=== PATIENT | female | born 2000 | race Caucasian/White ===

== ENCOUNTER 2022-03-26 14:47 | Outpatient (REF) | payer BC, SELFPAY ==
[2022-03-26 21:44] LABS: HCG Qual (Serum) Negative
== END 2022-03-26 14:48 | disposition home or self-care (01) ==
LOC: LBN 14:47
PROVIDERS: Visit Provider Physician Assistant
DX: R11.10 Vomiting, unspecified (principal); R10.30 Lower abdominal pain, unspecified; Z32.02 Encounter for pregnancy test, result negative
CPT/HCPCS: 84703

== ENCOUNTER 2023-03-23 18:03 | Emergency (ER) | payer BC, SELFPAY ==
[2023-03-23 18:07] VITALS: BP 133/88; PULSE 98; RESP 18; TEMP 36.8; O2SAT 100
--- NOTE | 2023-03-23 18:26 | W.ED.GENAD ---
Discharge Plan Disposition Patient Disposition: Home Condition: Stable Discharge Details Clinical Impression: Abnormal vaginal bleeding Primary Care Provider: None,None ED Provider: Kayleigh Castellanos Home Meds and New Rx's Prescriptions: No Action venlafaxine 225 mg tablet extended release 24hr 225 mg PO DAILY benzonatate 100 mg capsule 100 mg PO TID PRN (Reason: cough) Qty: 14 0RF albuterol sulfate [Proventil HFA] 90 mcg/actuation HFA aerosol inhaler 2 puff inhalation Q6H PRN (Reason: shortness of breath or wheezing) Qty: 8.5 0RF Rx Instructions: disp with spacer. dx. bronchitis with bronchospasm Discharge Instructions Instructions: Abnormal (Dysfunctional) Uterine Bleeding (ED) Additional Instructions: Please return as instructed by radiology department for Ultrasound within the next 24 hours. Return sooner if bleeding more than 1 pad an hour. Return if any dizziness, lighheadedness, or concerns. Follow up with [employer]/primary care provider in 3-5 days. Return to ED sooner if any worsening or concerns. Increase oral fluids. Please take Tylenol or Ibuprofen with food every 4-6 hours as needed for pain and swelling. Referrals: Becca Lopez MD [ [facility] STAFF PHYSICIAN] - 2 days Medical Decision Making 22-year-old female 2 para 0 presents with chief complaint of vaginal bleeding. Patient states that she had a medical proximately 2-1/2 weeks ago stopped bleeding and yesterday morning began bleeding again. She reports heavy bleeding approximately 1 pad in 3 hours. She reports a small amount of cramping denies any fever nausea vomiting diarrhea or any other associated symptoms. CBC, CMP prdered and IV. Urine HCG Urine POC positive will add on a HCG quant. Outpatient order ultrasound ordered for tomorrow. Discussed home care and strict return instructions, verbalized understanding. This text was generated using [employer] dictation system, please disregard any oddities of phrase or misspellings. Lab Data Lab results reviewed: Yes I reviewed the patient's lab results. Labs: Laboratory Tests Range/Units 03/23/23 03/23/23 03/23/23 18:49 19:07 19:20 WBC (4.4-10.8) 10^3/uL 14.46 H RBC (3.93-5.22) 10^6/uL 4.57 Hgb (11.2-15.7) g/dL 13.5 Hct (36.0-46.0) % 39.2 MCV (80-95) fL 86 MCH (27.0-33.0) pg 29.5 MCHC (32.0-36.0) % 34.4 RDW (11.7-14.6) % 12.2 Plt Count (130-400) 10^3/uL 495 H MPV (8.0-11.0) fL 8.2 Immature Gran % 0.0 Neutrophils % 64.0 Lymphocytes % 31.0 Monocytes % 3.0 Eosinophils % 2.0 Basophils % 0.0 Nucleated RBC % (0.0-0.3) % 0.0 Absolute Neutrophils (1.2-6.7) 10^3/uL 9.25 H Absolute Lymphocytes (1.2-3.4) 10^3/uL 4.48 H Absolute Monocytes (0.1-0.8) 10^3/uL 0.43 Absolute Eosinophils (0.0-0.7) 10^3/uL 0.29 Absolute Basophils (0.0-0.2) 10^3/uL 0.00 RBC Morphology Normal Sodium (136-145) mmol/L 139 Potassium (3.5-5.1) mmol/L 3.8 Chloride (98-107) mmol/L 105 Carbon Dioxide (21.0-32.0) mmol/L 20.7 L Anion Gap (3-11) mmol/L 13.3 H BUN (7-18) mg/dL 12 Creatinine (0.55-1.02) mg/dL 1.0 Est GFR (CKD-EPI 2020) (mL/min/1.73m2) 81.18 Glucose (74-106) mg/dL 103 Calcium (8.5-10.1) mg/dL 9.5 Total Bilirubin (0.2-1.0) mg/dL 0.3 AST (15-37) U/L 18 ALT (14-59) U/L 22 Alkaline Phosphatase (46-116) U/L 64 Total Protein (6.4-8.2) g/dL 8.2 Albumin (3.4-5.0) g/dL 4.2 Beta HCG, Quant (1-3) mIU/mL Urine HCG, Qual Cancelled Add-On Test Request Range/Units 03/23/23 03/23/23 20:15 20:15 WBC (4.4-10.8) 10^3/uL RBC (3.93-5.22) 10^6/uL Hgb (11.2-15.7) g/dL Hct (36.0-46.0) % MCV (80-95) fL MCH (27.0-33.0) pg MCHC (32.0-36.0) % RDW (11.7-14.6) % Plt Count (130-400) 10^3/uL MPV (8.0-11.0) fL Immature Gran % Neutrophils % Lymphocytes % Monocytes % Eosinophils % Basophils % Nucleated RBC % (0.0-0.3) % Absolute Neutrophils (1.2-6.7) 10^3/uL Absolute Lymphocytes (1.2-3.4) 10^3/uL Absolute Monocytes (0.1-0.8) 10^3/uL Absolute Eosinophils (0.0-0.7) 10^3/uL Absolute Basophils (0.0-0.2) 10^3/uL RBC Morphology Sodium (136-145) mmol/L Potassium (3.5-5.1) mmol/L Chloride (98-107) mmol/L Carbon Dioxide (21.0-32.0) mmol/L Anion Gap (3-11) mmol/L BUN (7-18) mg/dL Creatinine (0.55-1.02) mg/dL Est GFR (CKD-EPI 2020) (mL/min/1.73m2) Glucose (74-106) mg/dL Calcium (8.5-10.1) mg/dL Total Bilirubin (0.2-1.0) mg/dL AST (15-37) U/L ALT (14-59) U/L Alkaline Phosphatase (46-116) U/L Total Protein (6.4-8.2) g/dL Albumin (3.4-5.0) g/dL Beta HCG, Quant (1-3) mIU/mL 92 H Urine HCG, Qual Add-On Test Request DONE HPI General Mode of arrival: ambulatory. Date/Time Provider Initiated Documentation: 03/23/23 18:14. Limitations to Documentation: no limitations. Information obtained by: patient, RN notes reviewed and old records reviewed. HPI Narrative: 22-year-old female 2 para 0 presents with chief complaint of vaginal bleeding. Patient states that she had a medical proximately 2-1/2 weeks ago stopped bleeding and yesterday morning began bleeding again. She reports heavy bleeding approximately 1 pad in 3 hours. She reports a small amount of cramping denies any fever nausea vomiting diarrhea or any other associated symptoms. Related Data Home Medications Medication Instructions Recorded Confirmed venlafaxine 225 mg tablet,extended 225 mg PO DAILY 03/26/22 05/04/22 release 24 hr albuterol sulfate 90 mcg/actuation 2 puff inhalation Q6H PRN 05/04/22 05/04/22 aerosol inhaler (Proventil HFA) shortness of breath or wheezing #8.5 grams benzonatate 100 mg capsule 100 mg PO TID PRN cough #14 caps 05/04/22 05/04/22 Previous Rx's Medication Instructions Recorded albuterol sulfate 90 mcg/actuation 2 puff inhalation Q6H PRN 05/04/22 aerosol inhaler (Proventil HFA) shortness of breath or wheezing #8.5 grams benzonatate 100 mg capsule 100 mg PO TID PRN cough #14 caps 05/04/22 Allergies Allergy/AdvReac Type Severity Reaction Status Date / Time amoxicillin Allergy Verified 05/04/22 13:50 Penicillins Allergy Verified 05/04/22 13:50 General Stated Complaint: [employer] SHIRA: 3 Review of Systems All systems reviewed & are unremarkable except as noted in HPI and below PFSH All Active Problems (Updated 03/23/23 @ 21:03 by Kayleigh Castellanos NP) Abnormal vaginal bleeding (Acute) Social History Smoking/Tobacco Use Status: Current every day Tobacco Type: e-cigarettes Smoking risk assessment performed?: Yes Alcohol Intake: current Alcohol Intake frequency: holidays/special occasions only Drug use: Daily Substance use type: marijuana Do you feel safe at home: Yes Do you feel safe in your relationship?: Yes Exam Narrative Exam Narrative: Constitutional: Alert and oriented x3. Appears stated age. Normal body habitus. Head: Normocephalic, no trauma. Eyes: Pupils PERRL, Red reflex noted, EOM's intact. Eyelids symmetrical without lesions, discharge, or swelling. ENT: Bilateral TM's WNL, External ear normal to inspection, no mastoid TTP, swelling, or erythema, Nasal turbinates WNL, no nasal discharge. Normal dentition, Posterior pharynx WNL, no exudate. Chest: RRR, Normal S1, S2, distal pulses intact. Resp: Lungs clear to auscultation bilaterally, no wheezes, rales, or rhonchi. Abdomen: Soft, non-distended, Normoactive bowel sounds all 4 quads. Musculoskeletal: Normal gait, 5/5 strength to all four extremities. Skin: No suspicious rashes or lesions. Capillary refill less than 2 sec. Neurologic: Cranial nerves II-XII intact. Alert and oriented x 3. Motor: No deficits noted. Sensory: Intact bilaterally all 4 extremities. Reflexes: DTR's intact bilaterally.. Hematologic/Lymphatic: No ecchymosis, no lymphadenopathy. Course Vital Signs Vital signs: Vital Signs Temperature 36.8 C 03/23/23 18:07 Pulse 98 H 03/23/23 18:07 Respiratory Rate 18 03/23/23 18:07 Blood Pressure 133/88 03/23/23 18:07 Pulse Oximetry 100 03/23/23 18:07 Temperature 36.8 C 03/23/23 18:07 Temperature Source Oral 03/23/23 18:07 Pulse 98 H 03/23/23 18:07 Respiratory Rate 18 03/23/23 18:07 Respiratory Effort Normal 03/23/23 18:20 Blood Pressure 133/88 03/23/23 18:07 Blood Pressure Position Supine 03/23/23 18:07 Pulse Oximetry 100 03/23/23 18:07 Oxygen Delivery Method Room Air 03/23/23 18:07 Oxygen Flow Rate 0 03/23/23 18:07 Pain Level 0 03/23/23 18:07
[2023-03-23 19:26] LABS: Abs Immature Grans 0.04 10^3/uL (0.0-0.06); HCT 39.2 % (36.0-46.0); HGB 13.5 g/dL (11.2-15.7); MCH 29.5 pg (27.0-33.0); MCHC 34.4 % (32.0-36.0); MCV 86 fL (80-95); MPV 8.2 fL (8.0-11.0); Platelet Count 495 10^3/uL (130-400); RBC 4.57 10^6/uL (3.93-5.22); RDW 12.2 % (11.7-14.6); RDW-SD 38.1 fL; WBC 14.46 10^3/uL (4.4-10.8)
[2023-03-23 19:33] LABS: ALT 22 U/L (14-59); AST 18 U/L (15-37); Albumin 4.2 g/dL (3.4-5.0); Alkaline Phosphatase 64 U/L (46-116); Anion Gap 13.3 mmol/L (3-11); BUN 12 mg/dL (7-18); Bilirubin, Total 0.3 mg/dL (0.2-1.0); CO2 20.7 mmol/L (21.0-32.0); Calcium 9.5 mg/dL (8.5-10.1); Chloride 105 mmol/L (98-107); Estimated GFR 81.18 (mL/min/1.73m2); Glucose 103 mg/dL (74-106); Potassium 3.8 mmol/L (3.5-5.1); Sodium 139 mmol/L (136-145); Total Protein 8.2 g/dL (6.4-8.2)
[2023-03-23 19:52] LABS: Absolute Eosinophil Count 0.29 10^3/uL (0.0-0.7); Absolute Lymphocyte Count 4.48 10^3/uL (1.2-3.4); Absolute Monocyte Count 0.43 10^3/uL (0.1-0.8); Absolute Neutrophil Count 9.25 10^3/uL (1.2-6.7); Diff Comment Manual Differential; RBC Morphology Normal
[2023-03-23 20:22] LABS: Lab Add On Test DONE
[2023-03-23 21:02] LABS: HCG Quant, Pregnancy 92 mIU/mL (1-3)
[2023-03-23 21:13] VITALS: BP 128/84; PULSE 88; RESP 16; O2SAT 100
== END 2023-03-23 21:14 | disposition home or self-care (01) ==
PROVIDERS: Emergency Provider Registered Nurse Emergency
DX: O03.6 Delayed or excessive hemorrhage following complete or unspecified spontaneous abortion (principal)
CPT/HCPCS: 80053; 81025; 99283; 84702; 85025; 99282